=== PATIENT | male | born 1980 | race African-American/Black ===

== ENCOUNTER 2018-03-01 10:05 | Emergency (ER) | payer OTHER ==
[~2018-03-01] VITALS: Ht 172.7 cm; Wt 83.7 kg
[~2018-03-01 10:05] MED LIST: AMOXICILLIN500 MG; COGENTIN0.5 MG PO; MAALOX SUSPENS148 ML G-TUBE; PERPHENAZINE8 MG PO; PROZAC20 M1 PO; TEGRETOL-XR,CA200 MG PO; TYLENOL 8 HOUR650 MG PO; TYLENOL325 M1 PO; ZYPREXA7.5 MG PO
[2018-03-01 10:46] VITALS: BP 142/82
== END 2018-03-01 10:31 | disposition home or self-care (01) ==
LOC: EME 10:05
DX: K40.90 Unilateral inguinal hernia, without obstruction or gangrene, not specified as recurrent (principal); F32.9 Major depressive disorder, single episode, unspecified; F90.9 Attention-deficit hyperactivity disorder, unspecified type; F84.9 Pervasive developmental disorder, unspecified
CPT/HCPCS: 99281; 99284

== ENCOUNTER → 2018-04-21 | Outpatient (CLI) | payer OTHER | END | disposition home or self-care (01) | LOC: CDC 09:28 | DX: Z01.810 Encounter for preprocedural cardiovascular examination (principal); K40.20 Bilateral inguinal hernia, without obstruction or gangrene, not specified as recurrent; I44.0 Atrioventricular block, first degree; R94.31 Abnormal electrocardiogram [ECG] [EKG] | CPT/HCPCS: 93000 ==